=== PATIENT | female | born 2000 | race African-American/Black ===

== ENCOUNTER 2022-03-28 12:29 | Emergency (ER) | payer OTHER, SELFPAY ==
[2022-03-28 12:38] VITALS: BP 131/68; PULSE 89; RESP 16; TEMP 36.3; O2SAT 99
--- NOTE | 2022-03-28 13:52 | ED.SKABFB ---
HPI - Skin/Abscess/Foreign Bdy General Chief complaint: Skin/Abscess/Foreign Body Stated complaint: Absess under arm Time Seen by Provider: 03/28/22 13:32 Source: patient Mode of arrival: ambulatory Limitations: no limitations History of Present Illness HPI narrative: 21-year-old female presents with bump under her right armpit started 1 week ago. Patient states the pain is increasing and is becoming more swollen. Patient denies fevers. Patient states she has had these bumps multiple times in the past. Patient also states she has been having night sweats for the last couple months. Patient is requesting to be tested for HIV. Patient states she was in a long-term relationship and is concerned she may have contracted HIV from her partner. MD complaint: abscess/boil Onset (ago): week(s) (1) Tetanus up to date: unsure Location: RUE Severity: mild Quality: aching Relieving factors: none Exacerbating factors: none Context: none Associated symptoms: denies other symptoms Treatments prior to arrival: none Related Data Home Medications Medication Instructions Recorded Confirmed No Home Medications 03/28/22 03/28/22 Allergies Allergy/AdvReac Type Severity Reaction Status Date / Time No Known Allergies Allergy Verified 03/28/22 13:31 Review of Systems Review of Systems: All systems reviewed & are unremarkable except as noted in HPI and below Constitutional: Constitutional: Reports no additional constitutional complaints Eyes: Eyes: Reports no additional eye complaints ENT: Reports system reviewed and no additional complaints, except as documented Cardiovascular: Cardiovascular: Reports no additional cardiovascular complaints Respiratory: Respiratory: Reports no additional respiratory complaints Gastrointestinal: Gastrointestinal: Reports no additional gastrointestinal complaints Genitourinary: Genitourinary: Reports no additional female genitourinary complaints Musculoskeletal: Musculoskeletal: Reports no additional musculoskeletal complaints Integumentary/Breasts: Comments: Abscess Neurologic: Reports system reviewed and no additional complaints, except as documented Psychiatric: Psychiatric: Reports no additional psychiatric complaints Endocrine: Endocrine: Reports no additional endocrine complaints Hematologic/Lymphatic: Hematologic/Lymphatic: Reports no additional hematologic/lymphatic complaints Allergic/Immunologic: Allergic/Immunologic: Reports no additional allergic/immunologic complaints Exam Narrative: GENERAL: Well-appearing, well-nourished, and in no acute distress. HEAD: Normocephalic, atraumatic. EYES: PERRLA and EOMI. ENT: Nares clear, no rhinorrhea or epistaxis. Mucous membranes moist. NECK: Supple. CHEST: Clear to auscultation. No respiratory distress. HEART: Regular rate and rhythm. No murmur heard. Normal peripheral pulses. ABDOMEN: Soft, nontender, nondistended, normal active bowel sounds. EXTREMITIES: Normal range of motion. No edema. SKIN: Warm, dry, no rash, soft abscess to right axilla, area is closed and non-red NEURO: No focal deficits. Alert and oriented x3. PSYCH: Normal mood and affect. Course Course Emergency Course: There is small and soft we will treat with warm compresses and short dose of antibiotics Vital Signs Vital signs: Vital Signs Temperature 36.3 C L 03/28/22 12:38 Pulse Rate 89 03/28/22 12:38 Respiratory Rate 16 03/28/22 12:38 Blood Pressure 131/68 03/28/22 12:38 Pulse Oximetry 99 03/28/22 12:38 Temperature 36.3 C L 03/28/22 12:38 Pulse Rate 89 03/28/22 12:38 Respiratory Rate 16 03/28/22 12:38 Blood Pressure 131/68 03/28/22 12:38 Pulse Oximetry 99 03/28/22 12:38 MDM - Skin/Abscess/Foreign Bdy MDM Narrative Medical decision making narrative: Patient appears to have hydranitis suppurativa. We will treat with warm compresses and antibiotics. Patient instructed to follow-up with PCP. Critical Care Time Crit
[2022-03-28 14:44] VITALS: BP 122/63; PULSE 78; RESP 15; O2SAT 99
[2022-04-01 07:41] LABS: HIV DNA PCR (Qual) Not Detected (Not Detected)
== END 2022-03-28 14:46 | disposition home or self-care (01) ==
PROVIDERS: Emergency Provider Nurse Practitioner Family
DX: L73.2 Hidradenitis suppurativa (principal)
CPT/HCPCS: 36415; 87535; 99283